=== PATIENT | female | born 2000 | race Caucasian/White ===

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

== ENCOUNTER 2022-09-07 23:19 | Emergency (ER) | payer OTHER ==
[~2022-09-07] VITALS: Ht 154.9 cm; Wt 67.5 kg
[2022-09-07 23:22] VITALS: BP 122/65
== END 2022-09-08 02:11 | disposition left against medical advice (07) ==
LOC: M ED 23:19
DX: Z53.21 Procedure and treatment not carried out due to patient leaving prior to being seen by health care provider (principal)

== ENCOUNTER 2023-06-28 14:10 | Emergency (ER) | payer OTHER ==
[~2023-06-28] VITALS: Ht 154.9 cm; Wt 61.9 kg
[~2023-06-28 14:10] MED LIST changes: +AMOX875T2 PO; +IBUP80TA PO
[2023-06-28] MEDS ORDERED: ONDANSETRON 4MG 2ML VIAL IV ONE (16:50)
[2023-06-28] MEDS ORDERED: NS 1,000 ML IV ONE (16:50)
[2023-06-28 17:14] LABS: BASO % 0.3 % (0.0-1.0); EOS # 0.1 10^3/uL (0.0-0.5); EOS % 0.7 % (0.0-3.0); HEMATOCRIT 38.1 % (36.0-47.0); HEMOGLOBIN 12.6 g/dl (12.0-15.5); LYMPH # 2.2 10^3/uL (1.5-5.0); LYMPH % 30.9 % (24.0-44.0); MEAN CORPUSCULAR HEMOGLOBIN 28.3 pg (27.0-33.0); MEAN CORPUSCULAR HGB CONC 33.1 g/dl (32.0-36.5); MEAN CORPUSCULAR VOLUME 85.4 fl (80.0-96.0); MONO # 0.5 10^3/uL (0.0-0.8); MONO % 6.6 % (2.0-8.0); NEUTROPHILS # 4.3 10^3/uL (1.5-8.5); NEUTROPHILS % 61.2 % (36.0-66.0); PLATELET COUNT, AUTOMATED 263 10^3/uL (150-450); RED BLOOD COUNT 4.46 10^6/uL (4.00-5.40)
[2023-06-28 17:20] LABS: LIPASE 32 U/L (12-53)
[2023-06-28 17:22] LABS: ALKALINE PHOSPHATASE 74 U/L (46-116); ALT/SGPT 57 U/L (7.0-40); AST/SGOT 35 U/L (<34); BILIRUBIN,DIRECT 0.2 MG/DL (<0.4); BILIRUBIN,TOTAL 0.5 MG/DL (0.3-1.2); BLOOD UREA NITROGEN 6 MG/DL (9-23); CALCIUM LEVEL 9.2 MG/DL (8.5-10.1); CARBON DIOXIDE LEVEL 24 MMOL/L (20-31); CHLORIDE LEVEL 104 MMOL/L (98-107); CREATININE FOR GFR 0.44 MG/DL (0.55-1.30); GLOMERULAR FILTRATION RATE > 60.0 (>60); GLUCOSE, FASTING 78 MG/DL (60-100); POTASSIUM SERUM 3.7 MMOL/L (3.5-5.1); SODIUM LEVEL 140 MMOL/L (136-145); TOTAL PROTEIN 7.2 G/DL (5.7-8.2)
[2023-06-28 19:19] VITALS: BP 136/63; TEMP 98; O2SAT 99
[2023-06-28] MEDS ORDERED: ONDA4TAB6 PO (19:20)
== END 2023-06-28 20:06 | disposition home or self-care (01) ==
LOC: M ED 14:10
DX: O46.91 Antepartum hemorrhage, unspecified, first trimester (principal)
CPT/HCPCS: 76705; 76801; 80047; 80048; 80076; 83690; 84702; 85025; 93976; 96361; 96374; 99284; J2405

== ENCOUNTER → 2023-09-01 | Outpatient (CLI) | payer OTHER ==
[~2023-09-01] MED LIST changes: +ONDA4TAB6 PO
[2023-09-01 14:00] LABS: HEMATOCRIT 38.9 % (36.0-47.0); HEMOGLOBIN 12.9 g/dl (12.0-15.5); MEAN CORPUSCULAR HGB CONC 33.2 g/dl (32.0-36.5); MEAN CORPUSCULAR VOLUME 87.4 fl (80.0-96.0); PLATELET COUNT, AUTOMATED 258 10^3/uL (150-450); RED BLOOD COUNT 4.45 10^6/uL (4.00-5.40); WHITE BLOOD COUNT 7.3 10^3/uL (4.0-10.0)
[2023-09-01 15:08] LABS: HIV 1&2 SCREEN NEGATIVE (NEGATIVE)
[2023-09-01 15:17] LABS: HEPATITIS C VIRUS ABY INDEX 0.02 INDEX (<0.8)
== END ==
LOC: M PLALAB 11:04
PROVIDERS: ATTEND Specialist
DX: Z34.01 Encounter for supervision of normal first pregnancy, first trimester (principal); Z3A.00 Weeks of gestation of pregnancy not specified

== ENCOUNTER → 2023-10-05 | Outpatient (CLI) | payer OTHER | LOC: M WHC 10:04 | PROVIDERS: ATTEND Advanced Practice Midwife | DX: Z34.92 Encounter for supervision of normal pregnancy, unspecified, second trimester (principal) ==

== ENCOUNTER → 2023-12-11 | Outpatient (CLI) | payer OTHER ==
[2023-12-11 16:01] LABS: HEMATOCRIT 34.4 % (36.0-47.0); HEMOGLOBIN 11.3 g/dl (12.0-15.5); MEAN CORPUSCULAR HEMOGLOBIN 29.2 pg (27.0-33.0); MEAN CORPUSCULAR HGB CONC 32.8 g/dl (32.0-36.5); MEAN CORPUSCULAR VOLUME 88.9 fl (80.0-96.0); PLATELET COUNT, AUTOMATED 214 10^3/uL (150-450); RED BLOOD COUNT 3.87 10^6/uL (4.00-5.40); WHITE BLOOD COUNT 6.8 10^3/uL (4.0-10.0)
[2023-12-11 17:00] LABS: GC DNA AMPLIFICATION NEGATIVE (NEGATIVE)
== END ==
LOC: M PLALAB 11:37
PROVIDERS: ATTEND Obstetrics & Gynecology
DX: Z34.92 Encounter for supervision of normal pregnancy, unspecified, second trimester (principal)

== ENCOUNTER → 2024-01-22 | Outpatient (REF) | payer OTHER ==
[~2024-01-22] MED LIST changes: +ONDA-282 PO; -ONDA4TAB6 PO
== END ==
LOC: M SFHCWAGY 17:01
PROVIDERS: ATTEND Specialist
DX: Z34.83 Encounter for supervision of other normal pregnancy, third trimester (principal); Z36.85 Encounter for antenatal screening for Streptococcus B

== ENCOUNTER 2024-02-14 05:39 | Inpatient (IN) | payer OTHER ==
[~2024-02-14] VITALS: Ht 154.9 cm; Wt 70.2 kg
[2024-02-14] VITALS (30 sets, daily range): BP systolic 74–151; BP diastolic 43–76; TEMP 97.5; O2SAT 97–100
[2024-02-14] MEDS ORDERED: VALT500T PO (05:55)
[2024-02-14] MEDS ORDERED: HOME MED LIST COMPLETE! XX SCH (06:20)
[2024-02-14 07:20] LABS: HEMOGLOBIN 10.1 g/dl (12.0-15.5); MEAN CORPUSCULAR HEMOGLOBIN 26.6 pg (27.0-33.0); MEAN CORPUSCULAR HGB CONC 32.6 g/dl (32.0-36.5); MEAN CORPUSCULAR VOLUME 81.6 fl (80.0-96.0); PLATELET COUNT, AUTOMATED 210 10^3/uL (150-450); WHITE BLOOD COUNT 7.7 10^3/uL (4.0-10.0)
[2024-02-14] MEDS: LACTATED RINGER'S 1000 ML IV STA (07:41)
[2024-02-14] MEDS ORDERED: ONDANSETRON 4MG 2ML VIAL IV PRN ×2 (07:45→11:00)
[2024-02-14] MEDS ORDERED: diphenhydrAMINE 50MG/ML VIAL IV PRN ×2 (07:45→11:00)
[2024-02-14] MEDS ORDERED: NALOXONE INJ 0.4MG/1ML VIAL IV PRN ×3 (07:45→11:00)
[2024-02-14] MEDS ORDERED: ePHEDrine SULFATE 25 MG/5 ML(5MG/ML) SYRINGE IVP PRN (07:45)
[2024-02-14] MEDS ORDERED: LR 500 ML IV PRN (07:45)
[2024-02-14] MEDS ORDERED: EPIDURAL/PCA KEYS XX PRN (07:45)
[2024-02-14] MEDS: FENTANYL/ROPIVACAINE/NACL BAG 100 ML EPIDURAL SCH (08:07)
[2024-02-14] MEDS: PRENATAL VITAMINS CHEWABLE TABLET PO SCH (09:00)
[2024-02-14] MEDS: DOCUSATE SODIUM 100MG CAPSULE PO SCH (09:00)
[2024-02-14] MEDS ORDERED: ceFAZolin 2 GM/D5W 50 ML IV BAG As Ordered ONE (10:34)
[2024-02-14] MEDS ORDERED: OXYTOCIN 30UNITS IN 0.9% NaCl 500ML IV BAG As Ordered ONE (10:42)
[2024-02-14] MEDS ORDERED: LIDOCAINE 2% W/EPINEPHRINE 20ML VIAL **PRES FREE As Ordered ONE (10:46)
[2024-02-14] MEDS ORDERED: ONDANSETRON 4MG 2ML VIAL As Ordered ONE (10:46)
[2024-02-14] MEDS ORDERED: PHENYLephrine 500MCG 5ML (100MCG/ML) SYRINGE As Ordered ONE (10:55)
[2024-02-14] MEDS ORDERED: MORPHINE PRES-FREE INJ 10 MG/10 ML VIAL As Ordered ONE (10:55)
[2024-02-14] MEDS: LR 1,000 ML IV SCH ×2 (11:00→16:35)
[2024-02-14] MEDS ORDERED: MORPHINE 2 MG/ML 1ML VIAL IV PRN (11:00)
[2024-02-14] MEDS ORDERED: METOCLOPRAMIDE INJ 10MG/2ML VIAL IV PRN (11:00)
[2024-02-14] MEDS ORDERED: MEPERIDINE 25 MG/ML 1ML VIAL IV PRN (11:00)
[2024-02-14] MEDS ORDERED: NALBUPHINE HCL 1MG/0.1ML (100MG/10ML) MDV IV PRN (11:00)
[2024-02-14] MEDS ORDERED: **NOTE PATIENT COMMENT** MISC XX SCH (11:00)
[2024-02-14] MEDS: SLF 3 ML SYR IV SCH (11:00)
[2024-02-14 11:01] LABS: CORD GAS ABE A -12.6; CORD GAS HCO3 A 19.4 MMOL/L; CORD GAS O2 SAT A 21.6 %; CORD GAS PCO2 A 75.1 mmHg; CORD GAS PH A 7.029 UNITS; CORD GAS PO2 A 16.9 mmHg; CORD GAS SBC A 13.3 MMOL/L; CORD GAS TCO2 A 21.7 MMOL/L
[2024-02-14 11:02] LABS: CORD GAS ABE V -11.7; CORD GAS HCO3 V 18.9 MMOL/L; CORD GAS PCO2 V 63.5 mmHg; CORD GAS PH V 7.092 UNITS; CORD GAS PO2 V 17.2 mmHg; CORD GAS SBC V 14.1 MMOL/L; CORD GAS TCO2 V 20.9 MMOL/L
[2024-02-14] MEDS: ceFAZolin SOD 2 GM in IV 1 EA IV ONE (11:20)
[2024-02-14] MEDS ORDERED: CALCIUM CARBONATE 500 MG CHEW U/D PO PRN (11:50)
[2024-02-14] MEDS ORDERED: METHYLERGONOVINE MALEATE 0.2MG/ML 1ML VIAL IM PRN (11:50)
[2024-02-14] MEDS ORDERED: ANUSOL HC CREAM 30GM TOP PRN (11:50)
[2024-02-14] MEDS ORDERED: MOM 30ML SUSPENSION UDC PO PRN (11:50)
[2024-02-14] MEDS ORDERED: KETOROLAC 30 MG/ML 1ML VIAL As Ordered ONE (11:59)
[2024-02-14] MEDS: KETOROLAC 30 MG/ML 1ML VIAL IV SCH (12:00)
[2024-02-14] MEDS: AMPICILLIN SOD/SULBACTAM SOD 3 GM in D5W MINI-BAG PLUS 100 ML IV SCH (12:18)
[2024-02-14] MEDS: OXYTOCIN DRIP 30 UNITS in IV 1 EA IV SCH (12:31)
[2024-02-14] MEDS: PERCOCET 5MG/325MG TAB PO PRN (15:08)
[2024-02-14] MEDS ORDERED: COLA100C5 PO (21:55)
[2024-02-14] MEDS ORDERED: IBUP80TA PO (21:55)
[2024-02-15] VITALS (7 sets, daily range): BP systolic 94–114; BP diastolic 50–60; O2SAT 99–100
[2024-02-15 08:24] LABS: HEMOGLOBIN 8.6 g/dl (12.0-15.5); MEAN CORPUSCULAR HEMOGLOBIN 26.8 pg (27.0-33.0); MEAN CORPUSCULAR HGB CONC 31.9 g/dl (32.0-36.5); MEAN CORPUSCULAR VOLUME 84.1 fl (80.0-96.0); PLATELET COUNT, AUTOMATED 194 10^3/uL (150-450); RED BLOOD COUNT 3.21 10^6/uL (4.00-5.40); WHITE BLOOD COUNT 7.8 10^3/uL (4.0-10.0)
[2024-02-15] MEDS: SIMETHICONE 80MG CHEW TAB PO PRN (08:42)
[2024-02-15] MEDS: IBUPROFEN 800 MG TAB PO SCH (14:07)
[2024-02-15] MEDS: RHO(D) IMMUNE GLOBULIN/MALTOSE 500MCG(2500IU)/2.2ML VIAL (WINRHO) IM SCH (17:15)
[2024-02-15] MEDS: PERCOCET 5MG/325MG TAB PO PRN (20:36)
[2024-02-16 02:00] VITALS: BP 116/58; O2SAT 100
[2024-02-16 06:00] VITALS: BP 97/54; O2SAT 98
[2024-02-16] MEDS ORDERED: MEASLES,MUMPS,RUBELLA VACCINE INJ (MMR-II) SC.IMMUN ONE (09:00)
[2024-02-16 09:48] VITALS: BP 108/58; O2SAT 98
== END 2024-02-16 12:00 | disposition home or self-care (01) | DRG 540 ==
LOC: M LDO 05:39 → M LDI 06:08 → M OBS 13:15
PROVIDERS: ADMIT Obstetrics & Gynecology; ATTEND Obstetrics & Gynecology
PROC: 10D00Z1 Extraction of Products of Conception, Low, Open Approach (ICD-10-PCS; principal; 2024-02-14 10:32)
DX: O76 Abnormality in fetal heart rate and rhythm complicating labor and delivery (principal); F17.290 Nicotine dependence, other tobacco product, uncomplicated; Z37.0 Single live birth; Z3A.39 39 weeks gestation of pregnancy; O99.334 Smoking (tobacco) complicating childbirth

== ENCOUNTER → 2025-06-12 | Outpatient (CLI) | payer OTHER ==
[~2025-06-12] MED LIST changes: +COLA100C5 PO; +VALT500T PO
[2025-06-12 18:18] LABS: GLUCOSE CHALLENGE TEST 1 HOUR 77 MG/DL (LESS THAN 140)
[2025-06-12 18:20] LABS: PLATELET COUNT, AUTOMATED 262 10^3/uL (150-450)
[2025-06-12 18:48] LABS: HIV 1&2 SCREEN NEGATIVE (NEGATIVE)
[2025-06-12 18:56] LABS: HEPATITIS C VIRUS ABY INDEX < 0.02 INDEX (<0.8)
[2025-06-12 19:42] LABS: Trichomonas vaginalis (AMP) NOT DETECTED (NEGATIVE)
[2025-06-12 20:02] LABS: GC DNA AMPLIFICATION NEGATIVE (NEGATIVE)
== END ==
LOC: M PLALAB 13:35
PROVIDERS: ATTEND Obstetrics & Gynecology
DX: O34.211 Maternal care for low transverse scar from previous cesarean delivery (principal); Z3A.00 Weeks of gestation of pregnancy not specified
CPT/HCPCS: 36415; 82950; 85027; 86780; 86803; 86850; 86900; 86901; 87389; 87661; 87810; 87850; J2790

== ENCOUNTER → 2025-06-14 | Outpatient (CLI) | payer OTHER | LOC: M RAD 10:01 | PROVIDERS: ATTEND Obstetrics & Gynecology | DX: O34.211 Maternal care for low transverse scar from previous cesarean delivery (principal) ==